=== PATIENT | female | born 1970 | race Two or more races ===

== ENCOUNTER 2022-01-02 08:42 | Emergency (ER) | payer BC, OTHER ==
[~2022-01-02] VITALS: Ht 149.9 cm; Wt 68.0 kg
[2022-01-02 09:18] VITALS: BP 117/81
== END 2022-01-02 14:32 | disposition home or self-care (01) ==
LOC: ER 08:42
DX: R51.9 Headache, unspecified (principal)
CPT/HCPCS: 70450